=== PATIENT | male | born 1955 | race Caucasian/White ===

== ENCOUNTER 2018-08-08 07:55 | Day surgery (SDC) | payer OTHER ==
[2018-08-07 15:58] VITALS: BMI 41.5
[2018-08-08 09:38] VITALS: TEMP 97.5
[2018-08-08 10:17] VITALS: BP 119/56; PULSE 81
== END 2018-08-08 10:17 | disposition home or self-care (01) ==
LOC: JASU-ENDO 07:55
PROVIDERS: ATTEND Internal Medicine Gastroenterology
PROC: 0DJD8ZZ Inspection of Lower Intestinal Tract, Via Natural or Artificial Opening Endoscopic (ICD-10-PCS; principal; 2018-08-08 08:45)
DX: Z51.11 Encounter for antineoplastic chemotherapy (principal); K57.30 Diverticulosis of large intestine without perforation or abscess without bleeding; K64.8 Other hemorrhoids; I10 Essential (primary) hypertension; E11.9 Type 2 diabetes mellitus without complications; E66.9 Obesity, unspecified

== ENCOUNTER 2021-01-11 20:13 | Emergency (ER) | payer OTHER, MEDICARE ==
[2021-01-11 20:22] VITALS: BP 145/80; PULSE 93; TEMP 99.3; BMI 40.3
== END 2021-01-11 21:00 | disposition home or self-care (01) ==
LOC: FER 20:13
PROC: 0HQFXZZ Repair Right Hand Skin, External Approach (ICD-10-PCS; principal; 2021-01-11)
DX: S61.210A Laceration without foreign body of right index finger without damage to nail, initial encounter (principal); W26.0XXA Contact with knife, initial encounter; Y93.G1 Activity, food preparation and clean up
CPT/HCPCS: 99282-25

== ENCOUNTER 2021-01-17 10:41 | Emergency (ER) | payer OTHER, MEDICARE ==
[2021-01-17 10:49] VITALS: BP 139/74; PULSE 87; TEMP 98.4; BMI 39.5
== END 2021-01-17 11:25 | disposition home or self-care (01) ==
LOC: FER 10:41
DX: Z48.02 Encounter for removal of sutures (principal)
CPT/HCPCS: 99281-25

== ENCOUNTER 2023-03-28 06:18 | Day surgery (SDC) | payer OTHER ==
[2023-03-21 14:33] VITALS: BMI 34.9
[2023-03-28 06:42] VITALS: TEMP 98.1
[2023-03-28] MEDS ORDERED: ceFAZolin SODIUM 1 GM VIAL ONE (07:08)
[2023-03-28] MEDS ORDERED: LIDOCAINE HCL/PF 2% SDV 5ML VIAL ONE (07:08)
[2023-03-28] MEDS ORDERED: PROPOFOL 20 ML ONE (07:08)
[2023-03-28] MEDS ORDERED: MIDAZOLAM HCL 2 MG/2 ML SINGLE DOSE VIAL ONE ×2 (07:13→07:42)
[2023-03-28] MEDS ORDERED: LIDOCAINE HCL 1%, 10 MG/ML (20ML VIAL) ONE (07:15)
[2023-03-28] MEDS ORDERED: DEXAMETHASONE SOD PHOSPHATE 4 MG/1 ML VIAL ONE (08:21)
[2023-03-28] MEDS ORDERED: KETOROLAC TROMETHAMINE 30 MG/1 ML VIAL ONE (08:21)
[2023-03-28] MEDS ORDERED: ONDANSETRON 4 MG/2 ML VIAL ONE (08:21)
[2023-03-28 08:58] VITALS: RESP 19
[2023-03-28 09:06] VITALS: BP 118/74; PULSE 86
== END 2023-03-28 09:05 | disposition home or self-care (01) ==
LOC: FASU 06:18
PROVIDERS: ATTEND Orthopaedic Surgery
PROC: 0LN70ZZ Release Right Hand Tendon, Open Approach (ICD-10-PCS; principal; 2023-03-28 08:07)
DX: M65.331 Trigger finger, right middle finger (principal)
CPT/HCPCS: 82962